=== PATIENT | female | born 1965 | race Caucasian/White ===

== ENCOUNTER 2017-10-29 13:25 | Emergency (ER) | payer OTHER ==
[~2017-10-29] VITALS: Ht 177.8 cm; Wt 94.5 kg
[~2017-10-29 13:25] MED LIST: ELET40TA PO; IBUP-1221 PO; METF500T PO; SERT100T5 PO
[2017-10-29] MEDS ORDERED: MAALOX/HYOSCYAMINE/LIDOCAINE 45 ML BTL ONE (14:34)
[2017-10-29 14:45] LABS: BASOPHILS # (AUTO) 0.05 x10^3/uL (0-0.1); BASOPHILS % (AUTO) 1 % (0-1); EOSINOPHILS # (AUTO) 0.09 x10^3/uL (0-0.4); EOSINOPHILS % (AUTO) 1 % (1-7); LYMPHOCYTES # (AUTO) 3.05 x10^3/uL (1-3.4); LYMPHOCYTES % (AUTO) 37 % (22-44); MD NO; MEAN CORPUSCULAR HGB CONC 32.5 g/dL (32.4-35.8); MEAN CORPUSCULAR VOLUME 73.7 fL (80-100); MEAN PLATELET VOLUME 8.9 fL (7.4-10.4); MONOCYTES # (AUTO) 0.51 x10^3/uL (0.2-0.8); MONOCYTES % (AUTO) 6 % (2-9); NEUTROPHILS % (AUTO) 55 % (42-75); PLATELET COUNT 251 x10^3/uL (130-400); RED BLOOD COUNT 4.64 x10^6/uL (3.82-5.3); RED CELL DISTRIBUTION WIDTH 16.9 % (9.6-15.2)
[2017-10-29] MEDS ORDERED: MAALOX/HYOSCYAMINE/LIDOCAINE 45 ML BTL PO ONE (15:00)
[2017-10-29 15:03] LABS: ALBUMIN 3.5 g/dL (3.4-5.0); ANION GAP 8 mmol/L (5-15); CHLORIDE 109 mmol/L (98-107)
[2017-10-29 15:09] LABS: ALANINE AMINOTRANSFERASE 19 U/L (12-78); ALKALINE PHOSPHATASE 89 U/L (45-117); BILIRUBIN,TOTAL 0.7 mg/dL (0.2-1.0); CREATININE 0.77 mg/dL (0.55-1.02); TOTAL PROTEIN 7.5 g/dL (6.4-8.2); TROPONIN I < 0.015 ng/mL (0.000-0.045)
[2017-10-29] MEDS ORDERED: LORazepam 2 MG/ML, 1ML IM ONE (15:30)
[2017-10-29] MEDS ORDERED: LORazepam 2 MG/ML, 1ML ONE (15:33)
[2017-10-29 15:35] VITALS: BP 128/63
[2017-10-29 16:32] LABS: TROPONIN I < 0.015 ng/mL (0.000-0.045)
== END 2017-10-29 17:06 | disposition home or self-care (01) ==
LOC: ED 15:00
DX: R07.89 Other chest pain (principal)
CPT/HCPCS: 36415; 71045; 76700; 80053; 84484; 85025; 93005; 96372; 99285; J2060

== ENCOUNTER 2019-03-19 07:00 | Emergency (ER) | payer OTHER ==
[~2019-03-19] VITALS: Ht 177.8 cm; Wt 99.6 kg
[~2019-03-19 07:00] MED LIST changes: +SERT100T32 PO; -SERT100T5 PO
[2019-03-19] MEDS ORDERED: ACETAMINOPHEN 500 MG TABLET PO ONE (07:30)
[2019-03-19] MEDS ORDERED: LIDOCAINE 1%-EPI 1:100K, 20ML SQ ONE (07:30)
--- NOTE | 2019-03-19 07:38 | NUR ---
Patient had a GLF around 0600 this morning, "felt like my knee gave out" LOC for 1-2 minutes per pt report. Patient was ambulatory to room with tech and daughter. Neuro intact. Laceration was cleaned with water approximately 3 cm long. Not actively bleeding.
--- NOTE | 2019-03-19 07:40 | NUR ---
Patient to CT with Tech.
[2019-03-19] MEDS ORDERED: LIDOCAINE 1%-EPI 1:100K, 20ML ONE (07:48)
[2019-03-19] MEDS ORDERED: ACETAMINOPHEN 500 MG TABLET ONE (07:48)
[2019-03-19 09:01] VITALS: BP 135/76
--- NOTE | 2019-03-19 09:02 | NUR ---
Patient discharged home, NAD noted, ambulatory with steady gait. All patient belongings with patient. Discharge instructions provided and all questions and concerns addressed
== END 2019-03-19 09:14 | disposition home or self-care (01) ==
LOC: ED 08:40
DX: S06.0X1A Concussion with loss of consciousness of 30 minutes or less, initial encounter (principal); S01.01XA Laceration without foreign body of scalp, initial encounter; G43.909 Migraine, unspecified, not intractable, without status migrainosus; W01.0XXA Fall on same level from slipping, tripping and stumbling without subsequent striking against object, initial encounter; Y93.89 Activity, other specified; Y92.009 Unspecified place in unspecified non-institutional (private) residence as the place of occurrence of the external cause; Y99.8 Other external cause status
CPT/HCPCS: 12001; 70450; 99284